=== PATIENT | female | born 2005 | race Caucasian/White ===

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

== ENCOUNTER 2024-10-13 16:45 | Emergency (ER) | payer BC, SELFPAY ==
[2024-10-13 17:05] VITALS: BP 118/85; PULSE 143; RESP 20; TEMP 37.9; O2SAT 97
--- NOTE | 2024-10-13 17:19 | W.ED.GENAD ---
Discharge Plan Disposition Patient Disposition: Home Condition: Stable Discharge Details Clinical Impression: Pharyngitis Primary Care Provider: Mami Boyd ED Provider: Heath Edwards Home Meds and New Rx's Prescriptions: New amoxicillin-pot clavulanate 875-125 mg tablet 1 tab PO BID Qty: 19 0RF Continued dextroamphetamine-amphetamine [Adderall XR] 10 mg capsule,extended release 24hr 20 mg PO DAILY MDD 20mg Qty: 30 0RF Discontinued Children's Chew Multivitamin Tablet,Chewable 1 tab PO DAILY AM Discharge Instructions Additional Instructions: You appear to have pharyngitis which is an infection of the throat Take the antibiotic as prescribed You can take 1000 mg of acetaminophen and 600 mg of ibuprofen every 6 hours as needed If you feel more ill, have severe worsening pain or inability to swallow liquids return to the emergency department for reevaluation HPI General Mode of arrival: ambulatory. Date/Time Provider Initiated Documentation: 10/13/24 16:51. Limitations to Documentation: no limitations. Information obtained by: patient. History of Present Illness 18 year old F presents to the emergency department with the chief complaint of sore throat, described as moderate, Patient started experiencing this day(s) (1) and it has been constant. No relieving factors improve symptom(s), No exacerbating factors reported . Patient notes fever/chills; denies chest pain and shortness of breath. Patient did receive the following treatments prior to arrival, none Related Data Home Medications ?Medication ?Instructions ?Recorded ?Confirmed dextroamphetamine-amphetamine ER 20 mg (2 x 10 mg) PO DAILY #30 caps 09/01/24 10/13/24 10 mg 24hr capsule,extend release (Adderall XR) amoxicillin 875 mg-potassium 1 tab PO BID #19 tabs 10/13/24 clavulanate 125 mg tablet Previous Rx's ?Medication ?Instructions ?Recorded dextroamphetamine-amphetamine ER 20 mg (2 x 10 mg) PO DAILY #30 caps 09/01/24 10 mg 24hr capsule,extend release (Adderall XR) amoxicillin 875 mg-potassium 1 tab PO BID #19 tabs 10/13/24 clavulanate 125 mg tablet Allergies Allergy/AdvReac Type Severity Reaction Status Date / Time Environmental Allergy Mild Congestion Uncoded 10/13/24 17:07 General Stated Complaint: RespSymp OZ: 3 Review of Systems All systems reviewed & are unremarkable except as noted in HPI and below Constitutional Constitutional: Reports chills, Reports fever(s) and Denies weakness ENT Ears, Nose, Mouth, and Throat: Reports sore throat and Reports other Cardiovascular Cardiovascular: Denies chest pain and Denies dyspnea Respiratory Respiratory: Denies cough and Denies dyspnea Gastrointestinal Gastrointestinal: Denies abdominal pain, Denies nausea and Denies vomiting Musculoskeletal Musculoskeletal: Denies joint swelling Neurologic Neurologic: Denies weakness Exam Const General: no acute distress Orientation: alert [facility] Head: normal to inspection Ears: external ears normal General nose exam: external nose normal Mouth: oropharynx abnormals, moist mucous membranes and no drooling Eyes General: appearance normal, both eyes and all related structures Neck Neck: normal visual inspection Resp Effort & Inspection: normal respiratory effort and able to speak in complete sentences Cardio Rate: regular rate Skin General skin exam: no rashes or lesions noted Neuro General: patient alert and patient oriented x3 Extrem General: normal to inspection Psych Mental Status: mental status grossly normal Course Vital Signs Vital signs: Vital Signs Temperature 37.9 C H 10/13/24 17:05 Pulse 143 H 10/13/24 17:05 Respiratory Rate 20 10/13/24 17:05 Blood Pressure 118/85 10/13/24 17:05 Pulse Oximetry 97 10/13/24 17:05 Temperature 37.9 C H 10/13/24 17:05 Pulse 143 H 10/13/24 17:05 Respiratory Rate 20 10/13/24 17:05 Respiratory Effort Normal, Non-Labored 10/13/24 17:16 Respiratory Depth Normal 10/13/24 17:16 Blood Pressure 118/85 10/13/24 17:05 Blood Pressure Position Sitting 10/13/24 17:05 Pulse Oximetry 97 10/13/24 17:05 Oxygen Delivery Method Room Air 10/13/24 17:05 Oxygen Flow Rate 0 10/13/24 17:05 Medical Decision Making 18-year-old female who has a history of ADD comes in with 1 day of fever and chills along with sore throat. She also notes with bodyaches. Denies any coughs. Denies any drooling or stridor. She is alert and oriented x 4 on arrival. Her heart rate documented in triage was 140 on my exam and is 110. She has noted to have a low-grade fever here. She has no drooling or stridor on my exam. She has no submandibular swelling, no pain over the hyoid, no restricted neck movements or meningismus. His midline posterior pharynx, the posterior pharynx is erythematous and she has exudates on her tonsils. I suspect strep, will check a strep test but will likely initiate antibiotics given the exudates. Will give a one-time dose of dexamethasone. She has no findings on exam or history to suggest entities such as retropharyngeal abscess, peritonsillar abscess or epiglottitis. Strep negative but given the exudate and then initiate antibiotics. Will start on Augmentin. She still appears well, has no drooling and heart rate no less than 100 on my exam. She will follow-up with her PCP if not improving and return precautions given Differential Diagnosis Differential Diagnosis: pharyngitis, strep Quality:SDOH Health Related Social Needs: No Data to Display PFSH All Active Problems (Updated 10/13/24 @ 18:11 by Heath Edwards MD) Pharyngitis (Acute) Attention deficit disorder (ADD) in adult (Acute) Dysuria (Acute) Recurrent urinary tract infection (Acute) Urinary tract infection (Acute) Encounter for contraceptive management (Acute) Superficial mixed comedonal and inflammatory acne vulgaris (Acute 11/28/15) Keratosis pilaris (Acute 11/28/15) Eczema (Acute 05/04/13) Medical History (Updated 10/13/24 @ 18:11 by Heath Edwards MD) Acne Family History Father Heart disease Hyperlipidemia Maternal Grandmother Anemia Social History Smoking/Tobacco Use Status: Never Smoking risk assessment performed?: Yes Alcohol Intake: never Drug use: Never Substance use type: does not use Household members: other Details: Living with two roommates in an apartment at college. Housing: apartment Education Level: college Details: [employer] in [place], sophomore Pets and animals: Yes Pets and animals: cat(s) and dog(s) Seatbelt use: always Helmet use: Yes Helmet use: always Water heater temp set <120 deg: Yes Fire extinguisher in home: Yes Carbon monox detector in home: Yes Firearms in home: No Do you feel safe at home: Yes Do you feel safe in your relationship?: Yes
[2024-10-13] MEDS: Dexamethasone 10 MG/ML VIAL PO (17:25)
[2024-10-13 17:26] VITALS: PULSE 116; RESP 18; TEMP 37.8; O2SAT 100
[2024-10-13] MEDS: Ibuprofen 600 MG TAB PO (17:26)
[2024-10-13] MEDS: Amoxicillin 875/Clav. 125 TAB PO (17:51)
[2024-10-13 18:36] VITALS: PULSE 107; RESP 18; TEMP 36.9; O2SAT 99
== END 2024-10-13 18:38 | disposition home or self-care (01) ==
LOC: ER 18:28
PROVIDERS: Emergency Provider Emergency Medicine; PCP Nurse Practitioner Family
DX: J02.9 Acute pharyngitis, unspecified (principal); R50.9 Fever, unspecified; F98.8 Other specified behavioral and emotional disorders with onset usually occurring in childhood and adolescence
CPT/HCPCS: 99283; 87081; J1100

== ENCOUNTER 2025-11-11 16:41 | Outpatient (REF) | payer BC, SELFPAY ==
[2025-11-11 21:05] LABS: Glucose Negative (Negative)
== END 2025-11-11 16:42 | disposition home or self-care (01) ==
LOC: NCHCN 16:41
PROVIDERS: PCP Nurse Practitioner Family; Visit Provider Physician Assistant
DX: N39.0 Urinary tract infection, site not specified (principal)
CPT/HCPCS: 81003